=== PATIENT | male | born 1950 | race Caucasian/White ===

== ENCOUNTER → 2016-10-26 | Outpatient (CLI) | payer BC, OTHER ==
[~2016-10-26] MED LIST: ACET-1256 PO; ALPH600C2 PEG; ASCO500C43 PO; ASPEC325 PO; ASPI81TA28 PO; ATOR10TA82 PO; B-COTAB18 PO; CEPH500C PO; CHOLCAP5 PO; CLB200 PO; DICY10CA55 PO; DOCU-94 PO; FAMO1TAB47 PO; FERR142T PO; FERR325T5 PO; FOLI800T PO; FRS/40 PO; GABA600T PO; HYDR-5688 PO; MAGN250T22 PO; MULT-506 PO; OMEG10007 PO; ONDA8TAB6 PO; OXYC1TAB3 PO; OXYC20TA50 PO; OXYSR10 PO; POTA20TA16 PO; PRED20TA PO; PYRI100T4 PO; SAW160TA PO; SULF800T23 PO; VITAMIN B12 SL
[2016-10-26 10:19] LABS: BASO % 0.7 %; BASO ABS # 0.06 K/uL (0-0.2); COMPLETE YES; EOS % 4.9 %; HEMATOCRIT 42.7 % (42-52); IG% 0.4 %; LYMPH % 15.9 %; LYMPH ABS # 1.32 K/uL (1.2-3.4); MEAN CORPUSCULAR HEMOGLOBIN 32.5 pg (25-34); MEAN CORPUSCULAR HGB CONC 34.9 g/dl (32-36); MEAN PLATELET VOLUME 9.3 fL (7.4-10.4); MONO % 6.6 %; NEUT % 71.5 %; PLATELET COUNT 288 K/uL (130-400); RED BLOOD COUNT 4.59 M/uL (4.7-6.1); WHITE BLOOD COUNT 8.29 K/uL (4.8-10.8)
--- NOTE | 2016-10-26 14:17 | DIAGNOSTIC IMAGING REPORT ---
THREE-PHASE NUCLEAR BONE SCAN OF THE KNEES CLINICAL HISTORY: Left knee pain. COMPARISON STUDY: Radiographs of the left knee dated 03/14/2015. TECHNIQUE: Following the IV administration of 27.4 mCi of technetium 99m MDP, three-phase bone scan of the the knees was performed. Anterior and posterior flow and blood pool phase images are acquired. Bone phase imaging of the knees was performed at three hours in multiple obliquities. FINDINGS: There is no hyperemia identified involving either knee on the flow or blood pool phase images. There is a photopenic defect identified in the left knee consistent with a left knee arthroplasty. There is low level tracer deposition identified around the tibial and femoral component of the left knee arthroplasty on the bone phase images. Typically degenerative activity is seen in the right knee. IMPRESSION: 1. Three-phase negative bone scan of the left knee. 2. There is mild and nonspecific tracer deposition identified around the femoral and tibial stems of left knee arthroplasty on the bone phase images. Aseptic loosening would be impossible to exclude. 3. Typically degenerative activity is seen in the right knee. Electronically signed by: Rogelio Shook M.D. 10/26/2016 2:16 PM Dictated Date/Time: 10/26/2016 2:13 PM
== END | disposition home or self-care (01) ==
LOC: C.NUCL 09:32
DX: Z47.1 Aftercare following joint replacement surgery (principal); Z96.652 Presence of left artificial knee joint

== ENCOUNTER 2016-12-13 10:20 | Emergency (ER) | payer BC ==
[~2016-12-13] VITALS: Ht 180.3 cm; Wt 140.9 kg
[~2016-12-13 10:20] MED LIST changes: -ACET-1256 PO; -ALPH600C2 PEG; -ASPI81TA28 PO; -ATOR10TA82 PO; -B-COTAB18 PO; -CEPH500C PO; -FERR142T PO; -GABA600T PO; -MAGN250T22 PO; -ONDA8TAB6 PO; -OXYC1TAB3 PO; -OXYC20TA50 PO; -PRED20TA PO; -SAW160TA PO; -SULF800T23 PO
[2016-12-13 10:28] VITALS: TEMP 36.7; Ht 180.3 cm; Wt 140.9 kg
[2016-12-13] MEDS ORDERED: PIPERACILLIN/TAZOBACTAM 4.5 GM/100ML D5W IV STA (10:44)
[2016-12-13] MEDS ORDERED: KETOROLAC TROMETHAMINE 30 MG/ML VIAL IV STA (10:44)
[2016-12-13] MEDS ORDERED: ATOR10TA88 PO (11:18)
[2016-12-13] MEDS ORDERED: ACET-1256 PO (11:18)
[2016-12-13] MEDS ORDERED: OXYC1TAB3 PO (11:18)
[2016-12-13] MEDS ORDERED: GABA600T PO (11:18)
[2016-12-13] MEDS ORDERED: MAGN250T22 PO (11:18)
[2016-12-13] MEDS ORDERED: OXYC20TA50 PO (11:18)
[2016-12-13] MEDS ORDERED: SAW160TA PO (11:18)
[2016-12-13] MEDS ORDERED: ONDA8TAB6 PO (11:18)
[2016-12-13] MEDS ORDERED: ALPH600C2 PEG (11:18)
[2016-12-13] MEDS ORDERED: FERR142T PO (11:18)
[2016-12-13] MEDS ORDERED: B-COTAB18 PO (11:18)
[2016-12-13] MEDS ORDERED: ASPI81TA28 PO (11:18)
[2016-12-13] MEDS ORDERED: CEPH500C PO (11:18)
[2016-12-13 11:53] LABS: BASO % 0.6 %; BASO ABS # 0.06 K/uL (0-0.2); COMPLETE YES; EOS % 7.4 %; HEMATOCRIT 35.2 % (42-52); IG% 0.6 %; LYMPH % 9.3 %; LYMPH ABS # 0.93 K/uL (1.2-3.4); MEAN CELL VOLUME 95.7 fL (80-100); MEAN CORPUSCULAR HEMOGLOBIN 31.5 pg (25-34); MONO % 7.7 %; NEUT % 74.4 %; PLATELET COUNT 360 K/uL (130-400); RED BLOOD COUNT 3.68 M/uL (4.7-6.1); WHITE BLOOD COUNT 9.99 K/uL (4.8-10.8)
[2016-12-13 11:59] LABS: BUN/CREATININE RATIO 18.5 (10-20); C-REACTIVE PROTEIN 0.99 mg/dl (0-0.29); CALCIUM 8.7 mg/dl (8.5-10.1); CREATININE 1.1 mg/dl (0.60-1.40); POTASSIUM 4.5 mmol/L (3.5-5.1)
--- NOTE | 2016-12-13 11:59 | DIAGNOSTIC IMAGING REPORT ---
RIGHT KNEE 2 VIEWS CLINICAL HISTORY: Right knee pain. FINDINGS: AP and crosstable lateral views of the right knee are obtained. No prior studies are available for comparison at the time of dictation. The skeletal structures are osteopenic. No fracture is seen. A right knee arthroplasty is in near-anatomic alignment. There has been undersurface remodeling of the patella. No periprosthetic lucency is identified. A joint effusion is observed and there is significant soft tissue edema around the knee. A calcified fabella is incidentally noted. IMPRESSION: 1. Soft tissue swelling and joint effusion. No acute bony abnormality seen. 2. A right knee arthroplasty is in near-anatomic alignment. Electronically signed by: Rogelio Shook M.D. 12/13/2016 11:58 AM Dictated Date/Time: 12/13/2016 11:56 AM
[2016-12-13 12:02] LABS: ALB/GLOB RATIO 0.9 (0.9-2); PROTHROMBIN TIME (PATIENT) 10.2 SECONDS (9.0-12.0)
--- NOTE | 2016-12-13 12:24 | DIAGNOSTIC IMAGING REPORT ---
ULTRASOUND RIGHT LOWER EXTREMITY VENOUS CLINICAL HISTORY: Right leg pain and swelling. COMPARISON STUDY: No priors. TECHNIQUE: Real-time, grayscale, and color Doppler sonography of the deep veins of the right lower extremity was performed from the inguinal crease to the calf. Compression and augmentation were utilized. FINDINGS: There is no sonographic evidence of deep venous thrombosis identified in the right lower extremity. The common femoral, superficial femoral, and popliteal veins are patent and normally compressible. The greater saphenous vein and the profunda femoris vein at the junction with the common femoral vein are clear. The visualized calf veins are patent. IMPRESSION: There is no sonographic evidence of deep venous thrombosis identified in the right lower extremity. Electronically signed by: Rogelio Shook M.D. 12/13/2016 12:23 PM Dictated Date/Time: 12/13/2016 12:22 PM
[2016-12-13] MEDS: MoRPHine SULFATE 4 MG/ML 1 ML CARP\\VIAL IV PRN ×3 (12:31→14:25)
[2016-12-13] MEDS ORDERED: LIDO/EPINEPHRINE/SOD BICARB 20 ML VIAL INFIL ONE (13:29)
[2016-12-13] MEDS ORDERED: PRED20TA PO (15:05)
--- NOTE | 2016-12-13 15:06 | EMERGENCY ROOM VISIT NOTE ---
History Report prepared by Rupali: Dori Rausch Under the Supervision of: Dr. Arsh De La Rosa D.O. First contact with patient: 10:36 Chief Complaint: KNEEPAIN Stated Complaint: SWELLING R LEG/KNEE PAIN, FEVER History of Present Illness The patient is a 66 year old male who presents to the Emergency Room with complaints of worsening right knee pain that started about 1.5 weeks ago. The patient has been experiencing a low-grade fever but last night his temperature was 102. The patient states that his doctor told him to come into the ED for further evaluation if his fever got to be 102 or higher. The fevers are relieved with Tylenol. The patient's states that the incision and surrounding area were "hot" to the touch last night also. The patient's also states that the patient intermittently shakes and jerks his hands, especially when he is experiencing fevers. The patient states that he had a total right knee replacement on December 02, [address] Jiang - Orthopedic Surgery. The patient states that since he got home from surgery, he has been experiencing worsening pain and edema of his right knee and lower leg. He states that ice and elevation have offered no relief of the edema. The patient called Dr. Jiang's office and they prescribed him Keflex for a potential infection. He saw his PCP 4 days ago and the PA-C gave him a shot of Rocephin. She also called Dr. Jiang and had the patient go to his office to be further evaluated by him. The patient states that Dr. Jiang did not feel that the incision was infected and he was more concerned about a blood clot. He had the patient get an ultrasound of his right lower extremity which revealed that he did not have any blood clots. He told the patient to continue taking the Keflex. The patient adds that he had a total left knee replacement in the past with similar symptoms. He states that they eventually found out that he was allergic to the metal that was used for the replacement. He states that they removed the femur portion of the replacement and replaced it with a titanium piece which resolved all of his symptoms. The patient states that he has a ceramic replacement in his right knee that is supposed to be hypoallergenic but his daughter found that it contains a small amount of metal that he may be allergic to. The patient's adds that they put the tourniquet tightly on the patient's leg when he had surgery so they were concerned that had contributed to his symptoms. Source of History: patient Onset: about 1.5 weeks ago Position: knee (right) Quality: other (right knee pain) Timing: worsening Associated Symptoms: + fevers (highest at 102) Note: incision was hot to the touch Review of Systems See HPI for pertinent positives & negatives. A total of 10 systems reviewed and were otherwise negative. Past Medical & Surgical Medical Problems: (1) Status post left knee replacement Family History No pertinent family history Social History Smoking Status: Never Smoker Housing Status: lives with family Current/Historical Medications Scheduled Acetaminophen (Tylenol), 1,000 MG PO TID Alpha-Lipoic Acid (Thioctic Ac (Alpha Lipoic Acid), 600 MG PEG DAILY Ascorbic Acid (Vitamin C 500 mg), 500 MG PO HS Aspirin (Aspirin Ec), 81 MG PO BID Atorvastatin (Lipitor), 10 MG PO DAILY B-Complex Vitamins (Vitamin B Complex), 1 TAB PO DAILY Celecoxib (Celebrex), 200 MG PO BID Cephalexin Monohydrate (Keflex), 500 MG PO QID Cholecalciferol (Vitamin D3), 5,000 UNITS PO HS Ferrous Sulfate (Slow Fe), 1 TAB PO DAILY Fish Oil ([place]-3), 1 CAP PO DAILY Gabapentin (Neurontin), 600 MG PO TID Magnesium Oxide (Magnesium), 250 MG PO DAILY Prednisone (Prednisone), 1 TAB PO DAILY [place] ([place]ens) ([place]), 160 MG PO DAILY Sulfa/Trimethoprim (Bactrim Ds 800MG/160MG), 1 TAB PO BID Scheduled PRN Ondansetron Hcl (Zofran), 8 MG PO Q8 PRN for Nausea Oxycodone Hcl (Oxycontin), 20 MG PO Q12 PRN for Pain Oxycodone Immediate Rel Tab (Roxicodone Ir), 1-2 TAB PO Q4H PRN for Severe Pain Allergies Coded Allergies: [place] (Verified Allergy, Intermediate, UNKNOWN: FOUND ON ALLERGY TEST, ) [place] (Verified Allergy, Intermediate, RASH, 03/14/15) Chlorhexidine (Verified Allergy, Unknown, RASH, 12/13/16) Physical Exam Vital Signs Date Time Temp Pulse Resp B/P (MAP) Pulse Ox O2 Delivery O2 Flow Rate FiO2 12/13/16 15:10 72 20 145/72 92 Room Air 12/13/16 13:09 75 16 163/78 93 Room Air 12/13/16 11:30 81 18 131/71 96 Room Air 12/13/16 10:28 36.7 80 20 152/79 99 Room Air Physical Exam CONSTITUTIONAL/VITAL SIGNS: Reviewed / noted above. GENERAL: Non-toxic in appearance. INTEGUMENTARY: Warm, dry, and [place]. HEAD: Normocephalic. EYES: without scleral icterus or trauma. ENT/OROPHARYNX: clear and moist. LYMPHADENOPATHY/NECK: Is supple without lymphadenopathy or meningismus. RESPIRATORY: Lungs clear and equal. CARDIOVASCULAR: Regular rate and rhythm. GI/ABDOMEN: Soft and nontender. No organomegaly or pulsatile mass. No rebound or guarding. Normal bowel sounds. EXTREMITIES: Diffuse edema of the right lower extremity from the inguinal region to the foot with diffuse erythema and increased warmth. No discharge from surgical wound. BACK: No CVA tenderness. NEUROLOGICAL: Intact without focal deficits. PSYCHIATRIC: normal affect. MUSCULOSKELETAL: Normally developed with good muscle tone. Medical Decision & Procedures ER Provider Diagnostic Interpretation: Radiology results as stated below per my review and radiologist interpretation: RIGHT KNEE 2 VIEWS FINDINGS: AP and crosstable lateral views of the right knee are obtained. No prior studies are available for comparison at the time of dictation. The skeletal structures are osteopenic. No fracture is seen. A right knee arthroplasty is in near-anatomic alignment. There has been undersurface remodeling of the patella. No periprosthetic lucency is identified. A joint effusion is observed and there is significant soft tissue edema around the knee. A calcified fabella is incidentally noted. IMPRESSION: 1. Soft tissue swelling and joint effusion. No acute bony abnormality seen. 2. A right knee arthroplasty is in near-anatomic alignment. Electronically signed by: Rogelio Shook M.D. 12/13/2016 11:58 AM Dictated Date/Time: 12/13/2016 11:56 AM ULTRASOUND RIGHT LOWER EXTREMITY VENOUS FINDINGS: There is no sonographic evidence of deep venous thrombosis identified in the right lower extremity. The common femoral, superficial femoral, and popliteal veins are patent and normally compressible. The greater saphenous vein and the profunda femoris vein at the junction with the common femoral vein are clear. The visualized calf veins are patent. IMPRESSION: There is no sonographic evidence of deep venous thrombosis identified in the right lower extremity. Electronically signed by: Rogelio Shook M.D. 12/13/2016 12:23 PM Dictated Date/Time: 12/13/2016 12:22 PM Laboratory Results 12/13/16 11:20 Red Blood Count 3.68, Mean Corpuscular Volume 95.7, Mean Corpuscular Hemoglobin 31.5, Mean Corpuscular Hemoglobin Concent 33.0, Mean Platelet Volume 9.0, Neutrophils (%) (Auto) 74.4, Lymphocytes (%) (Auto) 9.3, Monocytes (%) (Auto) 7.7, Eosinophils (%) (Auto) 7.4, Basophils (%) (Auto) 0.6, Neutrophils # (Auto) 7.43, Lymphocytes # (Auto) 0.93, Monocytes # (Auto) 0.77, Eosinophils # (Auto) 0.74, Basophils # (Auto) 0.06 12/13/16 11:20 Test 12/13/16 11:20 White Blood Count 9.99 K/uL (4.8-10.8) Red Blood Count 3.68 M/uL (4.7-6.1) Hemoglobin 11.6 g/dL (14.0-18.0) Hematocrit 35.2 % (42-52) Mean Corpuscular Volume 95.7 fL (80-100) Mean Corpuscular Hemoglobin 31.5 pg (25-34) Mean Corpuscular Hemoglobin Concent 33.0 g/dl (32-36) Platelet Count 360 K/uL (130-400) Mean Platelet Volume 9.0 fL (7.4-10.4) Neutrophils (%) (Auto) 74.4 % Lymphocytes (%) (Auto) 9.3 % Monocytes (%) (Auto) 7.7 % Eosinophils (%) (Auto) 7.4 % Basophils (%) (Auto) 0.6 % Neutrophils # (Auto) 7.43 K/uL (1.4-6.5) Lymphocytes # (Auto) 0.93 K/uL (1.2-3.4) Monocytes # (Auto) 0.77 K/uL (0.11-0.59) Eosinophils # (Auto) 0.74 K/uL (0-0.5) Basophils # (Auto) 0.06 K/uL (0-0.2) RDW Standard Deviation 45.4 fL (36.4-46.3) RDW Coefficient of Variation 13.3 % (11.5-14.5) Immature Granulocyte % (Auto) 0.6 % Immature Granulocyte # (Auto) 0.06 K/uL (0.00-0.02) Nucleated RBC Absolute Count (auto) 0.02 K/uL (0-0) Nucleated Red Blood Cells % 0.2 % Erythrocyte Sedimentation Rate 38 mm/hr (0-14) Prothrombin Time 10.2 SECONDS (9.0-12.0) Prothromb Time International Ratio 1.0 (0.9-1.1) Activated Partial Thromboplast Time 24.7 SECONDS (21.0-31.0) Partial Thromboplastin Ratio 1.0 Anion Gap 5.0 mmol/L (3-11) Est Creatinine Clear Calc Drug Dose 92.3 ml/min Estimated GFR () 79.5 Estimated GFR (Non- 68.6 BUN/Creatinine Ratio 18.5 (10-20) Calcium Level 8.7 mg/dl (8.5-10.1) Total Bilirubin 1.2 mg/dl (0.2-1) Aspartate Amino Transf (AST/SGOT) 25 U/L (15-37) Alanine Aminotransferase (ALT/SGPT) 32 U/L (12-78) Alkaline Phosphatase 88 U/L (45-117) C-Reactive Protein 0.99 mg/dl (0-0.29) Total Protein 6.7 gm/dl (6.4-8.2) Albumin 3.2 gm/dl (3.4-5.0) Globulin 3.5 gm/dl (2.5-4.0) Albumin/Globulin Ratio 0.9 (0.9-2) Laboratory results as stated above per my review. Medications Administered Medications (Trade) Dose Ordered Sig/Ash Route Start Time Stop Time Status Last Admin Dose Admin Ketorolac Tromethamine (Toradol Inj) 30 mg NOW STAT IV 12/13/16 10:44 12/13/16 10:48 DC 12/13/16 11:23 30 MG Piperacillin Sod/ Tazobactam Sod (Zosyn Iv) 4.5 gm NOW STAT IV 12/13/16 10:44 12/13/16 10:48 DC 12/13/16 11:22 4.5 GM Morphine Sulfate (MoRPHine SULFATE INJ) 4 mg Q1H PRN IV 12/13/16 12:30 12/27/16 12:29 12/13/16 14:25 4 MG ED Course 1036: Previous medical records were reviewed. The patient was evaluated in room C3. A complete history and physical examination was performed. 1044: Ordered Zosyn 4.5 gm IV, Toradol Inj 30 mg IV 1230: Ordered Morphine Sulfate 4 mg IV 1304: Discussed the patient's case with Dr. Shearer - Orthopedic Surgery. He recommends sending the patient home and having him follow-up in the office tomorrow. 1316: Dr. Shearer was in the ED to evaluate a different patient so he stopped in to evaluate my patient also. 1326: Dr. Shearer evaluated the patient. He is going to aspirate the patient's knee. 1445: Dr. Shearer discussed the patient's case with Dr. Jiang. He feels the patient is well enough to go home. He recommended having the patient follow-up in the office. He said to have the patient call to schedule an appointment with Dr. Jiang. 1507: On reevaluation, the patient is doing well. I discussed the results and findings with the patient. He verbalized agreement of the treatment plan. He was discharged home. Medical Decision Differentials considered include cellulitis, abscess, MRSA infection, DVT, necrotizing fasciitis, dermatitis, drug eruption. Medication Reconciliation: I attest that I have personally reviewed the patient' s current medication list. Patient was found to have a slightly elevated blood pressure due to circumstances. I do not believe that the patient requires hypertension monitoring. This is a 66-year-old male who presents to the ED with a chief complaint of right lower extremity swelling, pain and redness. He also has been experiencing fevers. His right knee was replaced [address] Jiang. The patient states that on December 08, he developed a fever 100.5. He saw Dr. parr on the . At that time, he had an ultrasound that ruled out DVT and was started on Keflex. He states that he had a fever last night of 102. He states that the Keflex does not seem to be helping. His swelling and discomfort is worse as is the redness. He came in for evaluation. The patient' s vital signs here are normal. He is afebrile. His physical exam reveals a right lower extremity edema from the groin down to the foot with erythema that is mostly in the right inner thigh and extends into the right lower extremity. There is no discharge from the surgical wound. The patient does have some tenderness to palpation of the leg. An x-ray shows some soft tissue swelling at a joint effusion. Ultrasound did not show DVT. CBC was normal. Sedimentation rate is 38 and CRP is 0.99. Complete metabolic panel was unremarkable. The patient was given IV Toradol, IV morphine and IV Zosyn. Dr. Shearer was acquisition editor for Dr. Jiang. He came and evaluated the patient in the ED. He attempted aspiration of the knee but it was a dry tap. He and Dr. Jiang feel the patient is ok for discharge on a small course of prednisone. The patient will be discharged and will call tomorrow for follow-up. Consults Time Called: 1302 Consulting Physician: Dr. Shaerer - Orthopedic Surgyer Returned Call: 1304 Discussed the patient's case with Dr. Shearer - Orthopedic Surgery. He recommends sending the patient home and having him follow-up in the office tomorrow. Impression Primary Impression: Right leg swelling Additional Impressions: Right leg pain Post surgical complication Scribe Attestation The scribe's documentation has been prepared under my direction and personally reviewed by me in its entirety. I confirm that the note above accurately reflects all work, treatment, procedures, and medical decision making performed by me. Departure Information Dispostion Home / Self-Care Prescriptions Sulfa/Trimethoprim (Bactrim Ds 800MG/160MG) Tab 1 TAB PO BID, #14 TAB Prov: Arsh De La Rosa D.O. 12/13/16 Prednisone (Prednisone) 20 Mg Tab 1 TAB PO DAILY for 4 Days, #4 TAB Prov: Arsh De La Rosa D.O. 12/13/16 Referrals Yemi Cevallos M.D. (PCP) Forms HOME CARE DOCUMENTATION FORM, IMPORTANT VISIT INFORMATION Patient Instructions My [facility] Additional Instructions Prednisone as prescribed. Follow-up with your doctor (Dr. Jiang) for further care and evaluation in 1-2 days. Call tomorrow for appointment. Return to the emergency department for worsening or new symptoms or any concerns. You have been examined and treated today on an emergency basis only. This is not a substitute for, or an effort to provide, complete comprehensive medical care. It is impossible to recognize and treat all injuries or illnesses in a single emergency department visit. It is therefore important that you follow up closely with your doctor. Call as soon as possible for an appointment. Problem Qualifiers
[2016-12-13 15:10] VITALS: BP 145/72; PULSE 72; O2SAT 92
--- NOTE | 2016-12-13 15:17 | Medical Consult ---
Consultation Date of Consultation: Dec 13, 2016. Attending Physician: History of Present Illness This is a 66-year-old male with progressive pain and swelling in the right knee status post right total knee replacement approximately 11 days ago he was seen by Dr. jiang in the office approximately 4 days ago and placed on antibiotics. He has been on Keflex he notes continued pain and swelling in the right knee. He states fever at home was to 102. In the emergency department he is currently afebrile. He had left total knee replacement done in the past with a complicated course as well. Past Medical/Surgical History Medical Problems: (1) Post surgical complication Status: Acute (2) Right leg pain Status: Acute (3) Right leg swelling Status: Acute (4) Status post left knee replacement Status: Chronic Family History No pertinent family history Social History Smoking Status: Never Smoker Housing Status: lives with family Allergies Coded Allergies: [place] (Verified Allergy, Intermediate, UNKNOWN: FOUND ON ALLERGY TEST, ) [place] (Verified Allergy, Intermediate, RASH, 03/14/15) Chlorhexidine (Verified Allergy, Unknown, RASH, 12/13/16) Current Inpatient Medications Current Inpatient Medications Medications (Trade) Dose Ordered Sig/Ash Route Start Time Stop Time Status Last Admin Dose Admin Morphine Sulfate (MoRPHine SULFATE INJ) 4 mg Q1H PRN IV 12/13/16 12:30 12/27/16 12:29 12/13/16 14:25 4 MG Review of Systems Constitutional: + fever Eyes: No worsening of vision, No eye pain, No redness, No discharge, No diplopia, No problem reported ENT: No hearing loss, No unusual epistaxis, No nasal symptoms, No sore throat, No tinnitus, No dental problems, No trouble swallowing, No problem reported Respiratory: No cough, No sputum, No wheezing, No shortness of breath, No dyspnea on exertion, No dyspnea at rest, No hemoptysis, No problem reported Physical Exam Date Time Temp Pulse Resp B/P (MAP) Pulse Ox O2 Delivery O2 Flow Rate FiO2 12/13/16 13:09 75 16 163/78 93 Room Air 12/13/16 11:30 81 18 131/71 96 Room Air 12/13/16 10:28 36.7 80 20 152/79 99 Room Air Head: atraumatic Eyes: normal inspection ENT: normal ENT inspection Neck: trachea midline Extremities/Musculoskelatal: + pertinent finding (lower extremity examination shows diffuse swelling in the calf and in the leg. He has a well-healing surgical incision. He has no drainage and no gross pus. He can flex and extend the ankle and the digits. Palpation of the knee causes discomfort.) Laboratory Results Last 24 Hours Test 12/13/16 11:20 White Blood Count 9.99 K/uL Red Blood Count 3.68 M/uL Hemoglobin 11.6 g/dL Hematocrit 35.2 % Mean Corpuscular Volume 95.7 fL Mean Corpuscular Hemoglobin 31.5 pg Mean Corpuscular Hemoglobin Concent 33.0 g/dl Platelet Count 360 K/uL Mean Platelet Volume 9.0 fL Neutrophils (%) (Auto) 74.4 % Lymphocytes (%) (Auto) 9.3 % Monocytes (%) (Auto) 7.7 % Eosinophils (%) (Auto) 7.4 % Basophils (%) (Auto) 0.6 % Neutrophils # (Auto) 7.43 K/uL Lymphocytes # (Auto) 0.93 K/uL Monocytes # (Auto) 0.77 K/uL Eosinophils # (Auto) 0.74 K/uL Basophils # (Auto) 0.06 K/uL RDW Standard Deviation 45.4 fL RDW Coefficient of Variation 13.3 % Immature Granulocyte % (Auto) 0.6 % Immature Granulocyte # (Auto) 0.06 K/uL Nucleated RBC Absolute Count (auto) 0.02 K/uL Nucleated Red Blood Cells % 0.2 % Erythrocyte Sedimentation Rate 38 mm/hr Prothrombin Time 10.2 SECONDS Prothromb Time International Ratio 1.0 Activated Partial Thromboplast Time 24.7 SECONDS Partial Thromboplastin Ratio 1.0 Sodium Level 139 mmol/L Potassium Level 4.5 mmol/L Chloride Level 105 mmol/L Carbon Dioxide Level 29 mmol/L Anion Gap 5.0 mmol/L Blood Urea Nitrogen 20 mg/dl Creatinine 1.10 mg/dl Est Creatinine Clear Calc Drug Dose 92.3 ml/min Estimated GFR () 79.5 Estimated GFR (Non- 68.6 BUN/Creatinine Ratio 18.5 Random Glucose 99 mg/dl Calcium Level 8.7 mg/dl Total Bilirubin 1.2 mg/dl Aspartate Amino Transf (AST/SGOT) 25 U/L Alanine Aminotransferase (ALT/SGPT) 32 U/L Alkaline Phosphatase 88 U/L C-Reactive Protein 0.99 mg/dl Total Protein 6.7 gm/dl Albumin 3.2 gm/dl Globulin 3.5 gm/dl Albumin/Globulin Ratio 0.9 Assessment & Plan Assessment: persistent pain and swelling 11 days status post right total knee replacement I discussed the case with Dr. Jiang. I reviewed laboratory studies which included normal white count. Currently the patient is afebrile. He'll be reasonable to perform aspiration of the knee Procedure note The knee was prepped with alcohol, I then prepped the knee again with Betadine I injected 8 mL of lidocaine into the superior lateral aspect of the knee. With a spinal needle I entered the knee. I did not obtain any significant aspirate. There was no gross pus and there was no significant fluid in the knee. Again discuss results with Dr. parr replace the patient on Toradol and gave him a prednisone Dosepak. He will follow up shortly in the office for further evaluation. I will continue her oral antibiotics at this point in time. We will change the patient from Keflex to Bactrim.
--- NOTE | 2016-12-13 15:18 | History & Physical Bridge Note ---
H&P Re-Evaluation Bridge Note: I have examined the patient, reviewed the History & Physical and in the interval since the performance of the History & Physical I have noted the following changes of clinical significance: No changes noted
[2016-12-13] MEDS ORDERED: SULF800T23 PO (15:20)
== END 2016-12-13 15:34 | disposition home or self-care (01) ==
LOC: C.EDB 10:21 → C.EDC 15:34
DX: M79.89 Other specified soft tissue disorders (principal); M79.604 Pain in right leg; T81.9XXA Unspecified complication of procedure, initial encounter; Z79.82 Long term (current) use of aspirin; Z96.652 Presence of left artificial knee joint